=== PATIENT | male | born 1955 | race American Indian/Alaskan Native ===

== ENCOUNTER 2017-06-14 07:16 | Day surgery (SDC) | payer OTHER ==
[2017-06-14] MEDS ORDERED: Lactated Ringer's 500 ML IV SCH (08:30)
[2017-06-14] MEDS ORDERED: Lidocaine Hydrochloride 5 ML INJ ONE (08:50)
[2017-06-14] MEDS ORDERED: Propofol 10 mg/ml Inj (20 ML) ONE (08:50)
--- NOTE | 2017-06-14 08:58 | CP.SDSHP ---
Same Day Surgery H & P - History Proposed Procedure: COLONSCOPY Pre-Op Diagnosis: SEE NOTES - Previous Medical/Surgical History Cardiac: Hypertension - Allergies Allergies: Allergies No Known Allergies Allergy (Verified 06/14/17 07:45) - Physical Exam General Appearance: N Vital Signs: Vital Signs 06/14/17 07:30 Temperature 98.6 F Pulse Rate 70 Respiratory 19 Rate Blood Pressure 117/64 O2 Sat by Pulse 98 Oximetry Mental Status: Alert & Oriented x3 Neuro: WNL Heart: Other Lungs: WNL GI: Other - {Optional Preform as Required} Breast: WNL Abdomen: Other Rectal: Other Integument: WNL : WNL Ortho: WNL ENT: WNL - Impression Pt. Evaluated Today:Candidate for Anesthesia & Procedure: Yes - Date & Time Time: 08:58 Short Stay Discharge - Short Stay Discharge Admitting Diagnosis/Reason for Visit: RECTAL BLEEDING Disposition: HOME/ ROUTINE
[2017-06-14 09:26] VITALS: TEMP 98.3; O2SAT 100
[2017-06-14] MEDS ORDERED: Belladonna-Phenobarbital PO ONE (09:40)
[2017-06-14 09:57] VITALS: RESP 11
[2017-06-14 09:59] VITALS: BP 114/75; PULSE 68
== END 2017-06-14 11:05 | disposition home or self-care (01) ==
LOC: C.ENDO 07:16
PROVIDERS: ATTEND Specialist
DX: K62.5 Hemorrhage of anus and rectum (principal); K64.8 Other hemorrhoids; K64.4 Residual hemorrhoidal skin tags; K57.30 Diverticulosis of large intestine without perforation or abscess without bleeding; I10 Essential (primary) hypertension
CPT/HCPCS: 45380; 88305; J2704; J7120